=== PATIENT | female | born 1945 | race Caucasian/White ===

== ENCOUNTER → 2023-09-17 12:54 | Outpatient (REF) | payer MEDICARE, SELFPAY ==
[2023-09-17 13:37] LABS: % Basophils 1.2 % (0-2); % Eosinophils 7.3 % (0-6); % Immature Granulocytes 0.4 % (0-0.5); % Lymphocytes 24.4 % (20.5-51.1); % Monocytes 8.7 % (1.7-9.3); Absolute Basophils 0.1 10^3/uL (0-0.2); Absolute Eosinophils 0.4 10^3/uL (0-0.7); Absolute Lymphocytes 1.2 10^3/uL (1.2-3.4); Absolute Monocytes 0.4 10^3/uL (0.1-0.6); Absolute Neutrophils 2.9 10^3/uL (1.4-6.5); Hematocrit 36.7 % (37.0-47.0); Hemoglobin 13.1 g/dL (12.0-16.0); Mean Corp Hgb Conc. 35.7 g/dL (33.0-37.0); Mean Corpuscular Hgb 33.7 pg (27.0-31.0); Mean Corpuscular Volume 94.3 fL (81.0-99.0); Mean Platelet Volume 10.5 fL (7.4-10.4); Nucleated Red Blood Cells % 0 %; Platelet Count 309 10^3/uL (130-400); Red Blood Cell Count 3.89 10^6/uL (4.20-5.40); Red Cell Dist. Width 12.8 % (11.5-14.5)
[2023-09-17 14:02] LABS: ALT (SGPT) 22 U/L (0-35); AST (SGOT) 28 U/L (14-36); Alkaline Phosphatase 70 U/L (38-126); Blood Urea Nitrogen 19 mg/dl (7-17); Calcium 9.7 mg/dl (8.4-10.2); Carbon Dioxide 26 mmol/L (22-30); Chloride 103 mmol/L (98-107); Glucose 94 mg/dl (70-99); HDL Cholesterol 80 mg/dl; LDL Cholesterol, Calculated 62 mg/dl; Potassium 4.5 mmol/L (3.5-5.1); Sodium 138 mmol/L (135-145); Total Bilirubin 0.8 mg/dl (0.2-1.3); Total Cholesterol 182 mg/dl (50-199); Total Protein 6.9 g/dl (6.3-8.2); Triglyceride 200 mg/dl (10-149); Very Low Density Lipoprotein 40 mg/dl (0-30); eGFR > 60.00
[2023-09-17 14:16] LABS: Free T4 1.75 ng/dl (0.78-2.19)
[2023-09-17 14:29] LABS: TSH 8.85 uIU/ml (0.47-4.68)
== END ==
LOC: REG 12:54
PROVIDERS: ATTENDING PHYSICIAN Physician Assistant; FAMILY PHYSICIAN Nurse Practitioner Primary Care
DX: E78.00 Pure hypercholesterolemia, unspecified (principal); I10 Essential (primary) hypertension; I47.10 Supraventricular tachycardia, unspecified; E03.9 Hypothyroidism, unspecified; M85.80 Other specified disorders of bone density and structure, unspecified site
CPT/HCPCS: 36415; 80053; 80061; 84439; 84443; 85025

== ENCOUNTER → 2023-12-11 16:03 | Outpatient (REF) | payer MEDICARE, SELFPAY ==
[2023-12-11 16:45] LABS: % Basophils 1.4 % (0-2); % Eosinophils 4.8 % (0-6); % Immature Granulocytes 0.2 % (0-0.5); % Lymphocytes 21.1 % (20.5-51.1); % Monocytes 8.8 % (1.7-9.3); % Neutrophils 63.7 % (42.2-75.2); Absolute Basophils 0.1 10^3/uL (0-0.2); Absolute Eosinophils 0.3 10^3/uL (0-0.7); Absolute Lymphocytes 1.3 10^3/uL (1.2-3.4); Absolute Monocytes 0.6 10^3/uL (0.1-0.6); Hematocrit 37.9 % (37.0-47.0); Hemoglobin 12.8 g/dL (12.0-16.0); Mean Corp Hgb Conc. 33.8 g/dL (33.0-37.0); Mean Corpuscular Hgb 32.2 pg (27.0-31.0); Mean Corpuscular Volume 95.2 fL (81.0-99.0); Mean Platelet Volume 10.1 fL (7.4-10.4); Nucleated Red Blood Cells % 0 %; Platelet Count 321 10^3/uL (130-400); Red Blood Cell Count 3.98 10^6/uL (4.20-5.40); Red Cell Dist. Width 12.9 % (11.5-14.5); White Blood Cell Count 6.3 10^3/uL (4.8-10.8)
[2023-12-11 16:56] LABS: Erythrocyte Sed Rate 19 mm/hour (0-20)
[2023-12-11 17:08] LABS: ALT (SGPT) 27 U/L (0-35); AST (SGOT) 29 U/L (14-36); Albumin 4.6 g/dl (3.5-5.0); Alkaline Phosphatase 88 U/L (38-126); Blood Urea Nitrogen 15 mg/dl (7-17); Calcium 10.4 mg/dl (8.4-10.2); Carbon Dioxide 24 mmol/L (22-30); Chloride 106 mmol/L (98-107); Glucose 91 mg/dl (70-99); Potassium 4.4 mmol/L (3.5-5.1); Sodium 138 mmol/L (135-145); Total Bilirubin 0.5 mg/dl (0.2-1.3); Total Protein 7.2 g/dl (6.3-8.2); eGFR > 60.00
[2023-12-11 17:12] LABS: C-Reactive Protein < 5.00 mg/L (0.0-10.00)
[2023-12-11 17:18] LABS: Urine Albumin Trace (Neg - Trace); Urine Bilirubin Negative (Negative); Urine Character Clear (Clear); Urine Color Yellow; Urine Glucose Negative (Negative); Urine Ketone Negative (Negative); Urine Leukocyte 1+ (Negative); Urine Nitrite Negative (Negative); Urine Occult Blood Negative (Negative); Urine Urobilinogen Negative (Neg - 1+)
[2023-12-11 17:25] LABS: Free T4 1.72 ng/dl (0.78-2.19)
[2023-12-11 17:28] LABS: Urine Mucus Moderate; Urine Red Blood Cell 0-2 /HPF (0-2); Urine Squamous Cell 0-2 /LPF (Few); Urine White Cell 16-20 /HPF (0-5)
[2023-12-11 17:29] LABS: Urine Bacteria Moderate (Negative)
[2023-12-11 17:39] LABS: TSH 1.62 uIU/ml (0.47-4.68)
[2023-12-12 23:50] LABS: Complement C3 130 mg/dl (88-165)
== END ==
LOC: REG 16:03
PROVIDERS: ATTENDING PHYSICIAN Internal Medicine; FAMILY PHYSICIAN Nurse Practitioner Primary Care; REFERRING PHYSICIAN Physician Assistant
DX: M34.0 Progressive systemic sclerosis (principal); M34.9 Systemic sclerosis, unspecified; E03.9 Hypothyroidism, unspecified
CPT/HCPCS: 36415; 80053; 81003; 81015; 82565; 84439; 84443; 85025; 85652; 86140; 86160

== ENCOUNTER → 2024-05-05 14:51 | Outpatient (REF) | payer MEDICARE, SELFPAY | LOC: HWWDC 14:51 | PROVIDERS: ATTENDING PHYSICIAN Nurse Practitioner Primary Care | DX: Z12.31 Encounter for screening mammogram for malignant neoplasm of breast (principal) | CPT/HCPCS: 77063; 77067 ==

== ENCOUNTER → 2024-06-05 13:55 | Outpatient (REF) | payer MEDICARE, SELFPAY | LOC: HWRAD 13:55 | PROVIDERS: ATTENDING PHYSICIAN Nurse Practitioner Primary Care; REFERRING PHYSICIAN Physician Assistant | DX: M17.12 Unilateral primary osteoarthritis, left knee (principal); Z87.39 Personal history of other diseases of the musculoskeletal system and connective tissue; M81.0 Age-related osteoporosis without current pathological fracture; M19.011 Primary osteoarthritis, right shoulder | CPT/HCPCS: 77080 ==

== ENCOUNTER → 2024-07-04 13:52 | Outpatient (REF) | payer MEDICARE, SELFPAY ==
[2024-07-04 14:59] LABS: ALT (SGPT) 24 U/L (0-35); AST (SGOT) 26 U/L (14-36); Albumin 4.3 g/dl (3.5-5.0); Alkaline Phosphatase 69 U/L (38-126); Blood Urea Nitrogen 14 mg/dl (7-17); Calcium 9.4 mg/dl (8.4-10.2); Carbon Dioxide 26 mmol/L (22-30); Chloride 105 mmol/L (98-107); Glucose 88 mg/dl (70-99); Potassium 4.5 mmol/L (3.5-5.1); Sodium 138 mmol/L (135-145); Total Bilirubin 0.5 mg/dl (0.2-1.3); Total Protein 6.7 g/dl (6.3-8.2); eGFR > 60.00
== END ==
LOC: REG 13:52
PROVIDERS: ATTENDING PHYSICIAN Physician Assistant; FAMILY PHYSICIAN Nurse Practitioner Primary Care
DX: E03.9 Hypothyroidism, unspecified (principal); M85.80 Other specified disorders of bone density and structure, unspecified site
CPT/HCPCS: 36415; 80053

== ENCOUNTER → 2024-08-21 14:30 | Outpatient (REF) | payer MEDICARE, SELFPAY ==
[2024-08-21 16:50] LABS: ALT (SGPT) 22 U/L (0-35); AST (SGOT) 26 U/L (14-36); Albumin 4.5 g/dl (3.5-5.0); Alkaline Phosphatase 90 U/L (38-126); Blood Urea Nitrogen 19 mg/dl (7-17); Calcium 9.5 mg/dl (8.4-10.2); Carbon Dioxide 25 mmol/L (22-30); Chloride 102 mmol/L (98-107); Glucose 95 mg/dl (70-99); Potassium 4.5 mmol/L (3.5-5.1); Sodium 136 mmol/L (135-145); Total Bilirubin 0.7 mg/dl (0.2-1.3); Total Protein 6.7 g/dl (6.3-8.2); eGFR > 60.00
== END ==
LOC: REG 14:30
PROVIDERS: ATTENDING PHYSICIAN Physician Assistant; FAMILY PHYSICIAN Nurse Practitioner Primary Care
DX: M81.0 Age-related osteoporosis without current pathological fracture (principal)
CPT/HCPCS: 36415; 80053

== ENCOUNTER → 2024-09-30 12:20 | Outpatient (REF) | payer MEDICARE, SELFPAY ==
[2024-09-30 15:47] LABS: % Basophils 1.4 % (0-2); % Eosinophils 3.6 % (0-6); % Immature Granulocytes 0.5 % (0-0.5); % Lymphocytes 20.6 % (20.5-51.1); % Monocytes 10.1 % (1.7-9.3); % Neutrophils 63.8 % (42.2-75.2); Absolute Basophils 0.1 10^3/uL (0-0.2); Absolute Eosinophils 0.2 10^3/uL (0-0.7); Absolute Lymphocytes 1.2 10^3/uL (1.2-3.4); Absolute Monocytes 0.6 10^3/uL (0.1-0.6); Absolute Neutrophils 3.7 10^3/uL (1.4-6.5); Hematocrit 37.7 % (37.0-47.0); Hemoglobin 12.7 g/dL (12.0-16.0); Mean Corp Hgb Conc. 33.7 g/dL (33.0-37.0); Mean Corpuscular Hgb 32.3 pg (27.0-31.0); Mean Corpuscular Volume 95.9 fL (81.0-99.0); Mean Platelet Volume 10.3 fL (7.4-10.4); Nucleated Red Blood Cells % 0 %; Platelet Count 301 10^3/uL (130-400); Red Blood Cell Count 3.93 10^6/uL (4.20-5.40); White Blood Cell Count 5.8 10^3/uL (4.8-10.8)
[2024-09-30 15:52] LABS: HDL Cholesterol 67 mg/dl; LDL Cholesterol, Calculated 86 mg/dl; Magnesium 1.9 mg/dl (1.6-2.3); Total Cholesterol 188 mg/dl (50-199); Triglyceride 176 mg/dl (10-149); Very Low Density Lipoprotein 35 mg/dl (0-30)
[2024-09-30 16:11] LABS: Vitamin D, 25-OH*** 38.8 ng/mL (30-80)
[2024-09-30 17:00] LABS: Folate 16.9 ng/ml (2.76-20); Vitamin B12 443 pg/ml (239-931)
== END ==
LOC: HWRCS 12:20
PROVIDERS: ATTENDING PHYSICIAN Nurse Practitioner Primary Care
DX: I34.0 Nonrheumatic mitral (valve) insufficiency (principal); I36.1 Nonrheumatic tricuspid (valve) insufficiency; E78.00 Pure hypercholesterolemia, unspecified; I10 Essential (primary) hypertension; I73.9 Peripheral vascular disease, unspecified; Z79.899 Other long term (current) drug therapy; K22.2 Esophageal obstruction
CPT/HCPCS: 36415; 80061; 82306; 82607; 82746; 83735; 85025

== ENCOUNTER → 2024-10-14 13:41 | Outpatient (REF) | payer MEDICARE, SELFPAY | LOC: HWRCS 13:41 | PROVIDERS: ATTENDING PHYSICIAN Nurse Practitioner Primary Care | DX: M34.0 Progressive systemic sclerosis (principal); I34.0 Nonrheumatic mitral (valve) insufficiency; I36.1 Nonrheumatic tricuspid (valve) insufficiency | CPT/HCPCS: 93306 ==

== ENCOUNTER 2025-01-02 15:33 | Emergency (ER) | payer MEDICARE, SELFPAY ==
[2025-01-02 15:40] VITALS: BP 170/95
--- NOTE | 2025-01-02 17:34 | ED.GENMED ---
History of Present Illness
General
Chief Complaint: Skin Problem
Time Seen by Provider: 01/02/25 17:00
History of Present Illness
History of Present Illness:
79-year-old woman presenting to the emergency department with swelling to her hand after a fall about a week ago. She states that she fell straight onto her hand about a week ago. She did have a cut to her left palm and her right middle finger.
She states that she did have a few small cuts there that she washed and irrigated with soapy water as well as alcohol swabs. She does have a history of scleroderma and delayed wound healing. She did sharply hydrocolloid patches on it and since
then noticed some mild swelling. No fevers chills. No drainage. No warmth. No painful range of motion. She does not believe any foreign body was left behind.
Past History
Past History
ED Past Medical History: Arrthythmia (SVT), HTN, Hypercholesterolemia and Hypothyroidism (Synthroid dose was decreased about 9 months ago from 150 mcg to 138 mcg)
Social History
Tobacco: Non-smoker
Alcohol: None
Personal:
Living: with family
Family History
Family History: Hypertension
Phy Exam
Physical Exam
Physical Exam:
GENERAL: in no acute distress
HEENT: normocephalic, extraocular movements intact
NECK: normal inspection
RESPIRATORY: no respiratory distress
CARDIOVASCULAR: regular rate and rhythm
EXTREMITIES: Right hand: Middle finger palmar aspect of the middle phalanx with small area of scabbed over wound with associated erythema, wound is healing well, no tenderness, no fluctuation, no drainage, mild swelling that limits range of motion,
no tenderness over the flexor or extensor tendons. Normal cap refill. Left hand palm right below the pinky with small abrasion that is healing well with the scab, mild erythema, no warmth, no drainage, tenderness to palpation
NEUROLOGIC: awake and alert, moves all extremities
SKIN: warm
Course
Orders/Labs/Results
Orders:
Orders
01/02/25 17:34
CR Finger(s)/thumb Min 2 Vw Rt Urgent
Comment:
Reason For Exam: middle finger, r/o fb
CR Hand - Left Min 3 Views Urgent
Comment:
Reason For Exam: r/o fb
Vital Signs
Initial and Last Documented VS:
Initial Vital Signs
Temp Pulse Resp BP Pulse Ox
98.2 F 93 18 170/95 100
01/02/25 15:40 01/02/25 15:40 01/02/25 15:40 01/02/25 15:40 01/02/25 15:40
Last Documented Vital Signs
Temp Pulse Resp BP Pulse Ox
98.2 F 93 18 170/95 100
01/02/25 15:40 01/02/25 15:40 01/02/25 15:40 01/02/25 15:40 01/02/25 15:40
MDM/Problems Addressed
Differential Diagnosis Includes:
Patient is a 79-year-old woman presenting to the emergency department with wounds to her hand after a fall about a week ago. Examination does show 2 areas of wounds that are healing well with mild erythema. She does have history of scleroderma and
delayed wound healing states that she occasionally gets redness around wounds. There it is not warm and is not actively draining. I did complete a bedside ultrasound to evaluate weight for any foreign bodies which was not appreciated. No obvious
abscess underneath them either. Will proceed with x-ray to rule out any fractures or retained foreign bodies that are visible on x-ray.
*Critical Care Note
Total Time (30-74mins, 75-104mins- exclusive of procedures): Not Applicable
Update Note
Update Note:
X-ray per my interpretation with no foreign body retained. On reevaluation patient states that the swelling has also improved. She states that initially when she came in she did have a tight hydrocolloid Band-Aid wrapped around it and since she
removed it the swelling has improved. Patient is advised to loosely wrap a Band-Aid. Patient also states that she was using warm water to soak her hands. Patient advised to use cold water to help with swelling. Patient does state that given her
scleroderma her wounds do take longer to heal. At this time the wound is not infected. Patient advised to watch out for infection. She will call her primary care doctor to schedule an appointment on Sunday. Will discharge this time.
ED Attending Note
-
Portions of this chart may have been created with voice recognition software.� Occasional wrong word or��sound alike� substitutions may have occurred due to the inherent limitations of voice recognition software.
Discharge Plan
Departure
Patient Disposition: Home (Routine Discharge)
Date of Disposition: 01/02/25
Time of Disposition: 19:01
Patient with high blood pressure during this ER visit?: Yes
Discharge Problem:
Abrasion, Encounter for post-traumatic wound check
Instructions: Wound Care ([place]), [facility]
Prescriptions:
No Action
multivitamin [Daily Multiple] 1 EACH tablet
1 ea PO DAILY
atorvastatin 40 MG tablet
40 mg PO QPM
levothyroxine 137 MCG tablet
137 mcg PO DAILY
calcium carbonate-vitamin D2 1 EACH tablet
1 tab PO DAILY
zolpidem 5 MG tablet
5 mg PO PRN PRN (Reason: insomnia)
metronidazole-skin cleanser [Metrogel Kit] 1 EACH combo pack
1 kit topical HS
Patient Comments:
apply to face daily
potassium [Potassium-99] 99 MG tablet
99 mg PO DAILY
L.acidoph,paracasei,B.animalis 1 EACH capsule
1 ea PO DAILY
biotin 5,000 MCG tablet,disintegrating
5,000 mcg PO DAILY
Referrals:
Alee Montoya CRNP [Family Provider, Internal Medicine]
Activity Restrictions/Additional Instructions:
You were seen in the Emergency Department today for A wound that is slowly healing. Please watch out for signs of infection as discussed such as redness drainage warmth or fevers or chills please make sure you follow with your primary care doctor.
Please loosely cover the area. You may soak in ice water to help with the swelling
We would like for you to follow up with your primary care physician for further evaluation. If you experience fever, worsening of your symptoms, or develop any other new or concerning symptoms, please return to the Emergency Department immediately.
Please see the attached sheet for additional information.
Interventions
Interventions:
*Risk Screen - Suicide Last Done: 01/02/25 15:40
*General Assessment Last Done: 01/02/25 16:41
*Neglect/Abuse Screening Last Done: 01/02/25 15:40
*ED COVID-19 Vaccine History Last Done: 01/02/25 16:41
ED-Skin Assessment Last Done: 01/02/25 16:39
Discharge Date and Time
Print Language: KAZAKH
== END 2025-01-02 19:25 | disposition home or self-care (01) ==
LOC: EMR 15:33
PROVIDERS: EMERGENCY PHYSICIAN Student in an Organized Health Care Education/Training Program; FAMILY PHYSICIAN Nurse Practitioner Primary Care
DX: S60.416A Abrasion of right little finger, initial encounter (principal); W45.8XXA Other foreign body or object entering through skin, initial encounter; M34.9 Systemic sclerosis, unspecified; I10 Essential (primary) hypertension; E78.00 Pure hypercholesterolemia, unspecified; E03.9 Hypothyroidism, unspecified; Z82.49 Family history of ischemic heart disease and other diseases of the circulatory system
CPT/HCPCS: 99283; 73130; 73140

== ENCOUNTER → 2025-01-15 13:55 | Outpatient (REF) | payer MEDICARE, SELFPAY | LOC: RAD 13:55 | PROVIDERS: ATTENDING PHYSICIAN Orthopaedic Surgery Hand Surgery; FAMILY PHYSICIAN Nurse Practitioner Primary Care | DX: M12.812 Other specific arthropathies, not elsewhere classified, left shoulder (principal); M12.811 Other specific arthropathies, not elsewhere classified, right shoulder | CPT/HCPCS: 73200 ==

== ENCOUNTER → 2025-01-21 13:06 | Outpatient (REF) | payer MEDICARE, SELFPAY ==
[2025-01-21 16:18] LABS: ALT (SGPT) 23 U/L (0-35); AST (SGOT) 20 U/L (14-36); Albumin 4.3 g/dl (3.5-5.0); Alkaline Phosphatase 74 U/L (38-126); Blood Urea Nitrogen 22 mg/dl (7-17); Calcium 10.3 mg/dl (8.4-10.2); Carbon Dioxide 25 mmol/L (22-30); Chloride 104 mmol/L (98-107); Glucose 79 mg/dl (70-99); Potassium 4.4 mmol/L (3.5-5.1); Sodium 137 mmol/L (135-145); Total Protein 6.9 g/dl (6.3-8.2); eGFR > 60.00
[2025-01-21 16:35] LABS: Vitamin D, 25-OH*** 40.2 ng/mL (30-80)
[2025-01-21 16:48] LABS: TSH 0.45 uIU/ml (0.47-4.68)
== END ==
LOC: HWLAB 13:06
PROVIDERS: ATTENDING PHYSICIAN Physician Assistant; FAMILY PHYSICIAN Nurse Practitioner Primary Care
DX: E55.9 Vitamin D deficiency, unspecified (principal); E03.9 Hypothyroidism, unspecified; M81.0 Age-related osteoporosis without current pathological fracture
CPT/HCPCS: 36415; 80053; 82306; 84439; 84443

== ENCOUNTER → 2025-02-24 14:30 | Outpatient (REF) | payer MEDICARE, SELFPAY ==
[2025-02-24 15:47] LABS: ALT (SGPT) 23 U/L (0-35); AST (SGOT) 24 U/L (14-36); Albumin 4.2 g/dl (3.5-5.0); Alkaline Phosphatase 88 U/L (38-126); Blood Urea Nitrogen 15 mg/dl (7-17); Calcium 9.4 mg/dl (8.4-10.2); Carbon Dioxide 27 mmol/L (22-30); Chloride 105 mmol/L (98-107); Glucose 84 mg/dl (70-99); Potassium 4.3 mmol/L (3.5-5.1); Sodium 138 mmol/L (135-145); Total Protein 6.7 g/dl (6.3-8.2); eGFR > 60.00
[2025-02-24 16:24] LABS: TSH 0.09 uIU/ml (0.47-4.68)
== END ==
LOC: REG 14:30
PROVIDERS: ATTENDING PHYSICIAN Physician Assistant
DX: M81.0 Age-related osteoporosis without current pathological fracture (principal); E03.9 Hypothyroidism, unspecified
CPT/HCPCS: 36415; 80053; 84439; 84443

== ENCOUNTER → 2025-05-18 15:09 | Outpatient (REF) | payer MEDICARE, SELFPAY ==
[2025-05-18 18:01] LABS: TSH 2.17 uIU/ml (0.47-4.68)
== END ==
LOC: REG 15:09
PROVIDERS: ATTENDING PHYSICIAN Physician Assistant; FAMILY PHYSICIAN Nurse Practitioner Primary Care
DX: E03.9 Hypothyroidism, unspecified (principal)
CPT/HCPCS: 36415; 84439; 84443

== ENCOUNTER → 2025-06-05 14:01 | Outpatient (REF) | payer MEDICARE, SELFPAY | LOC: HWWDC 14:01 | PROVIDERS: ATTENDING PHYSICIAN Nurse Practitioner Primary Care | DX: Z12.31 Encounter for screening mammogram for malignant neoplasm of breast (principal) | CPT/HCPCS: 77063; 77067 ==

== ENCOUNTER 2025-06-25 16:37 | Emergency (ER) | payer MEDICARE, SELFPAY ==
[2025-06-25] VITALS (7 sets, daily range): BP systolic 145–196; BP diastolic 66–96; BMI 24.2
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
[2025-06-25 17:29] LABS: Hematocrit 38.3 % (37.0-47.0); Hemoglobin 13.1 g/dL (12.0-16.0); Mean Corp Hgb Conc. 34.2 g/dL (33.0-37.0); Mean Corpuscular Volume 91.6 fL (81.0-99.0); Nucleated Red Blood Cells % 0 %; Platelet Count 271 10^3/uL (130-400); Red Cell Dist. Width 13.1 % (11.5-14.5)
[2025-06-25] MEDS: CARDENE 200 IV (17:32)
[2025-06-25 17:36] LABS: APTT 27.2 Sec (23.4-35.0); INR 0.96; PT 12.6 Sec (11.4-14.6)
[2025-06-25 17:44] LABS: ALT (SGPT) 21 U/L (0-35); AST (SGOT) 23 U/L (14-36); Albumin 5.0 g/dl (3.5-5.0); Alkaline Phosphatase 82 U/L (38-126); Blood Urea Nitrogen 15 mg/dl (7-17); Calcium 9.7 mg/dl (8.4-10.2); Carbon Dioxide 26 mmol/L (22-30); Chloride 101 mmol/L (98-107); Glucose 109 mg/dl (70-99); Potassium 4.2 mmol/L (3.5-5.1); Sodium 134 mmol/L (135-145); Total Protein 7.9 g/dl (6.3-8.2); eGFR > 60.00
== END 2025-06-25 19:10 | disposition short-term general hospital (02) ==
LOC: EMR 16:37
PROVIDERS: Physician Assistant Medical; EMERGENCY PHYSICIAN Emergency Medicine; FAMILY PHYSICIAN Nurse Practitioner Primary Care
DX: S06.34AA Traumatic hemorrhage of right cerebrum with loss of consciousness status unknown, initial encounter (principal); V43.52XA Car driver injured in collision with other type car in traffic accident, initial encounter; E78.00 Pure hypercholesterolemia, unspecified; I10 Essential (primary) hypertension; E03.9 Hypothyroidism, unspecified
CPT/HCPCS: 99291; 96365; 96366; 70450; 70496; 70498; 80053; 85025; 85610; 85730; 86850; 86900; 86901; 93005; Q9967